=== PATIENT | male | born 1970 | race Asian ===

== ENCOUNTER 2019-10-18 14:12 | Emergency (ER) | payer OTHER ==
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
[2019-10-18 15:46] VITALS: BP 127/64
== END 2019-10-18 15:45 | disposition home or self-care (01) ==
LOC: ED 14:12
DX: S93.601A Unspecified sprain of right foot, initial encounter (principal); S90.511A Abrasion, right ankle, initial encounter; S80.211A Abrasion, right knee, initial encounter; S40.811A Abrasion of right upper arm, initial encounter; W05.2XXA Fall from non-moving motorized mobility scooter, initial encounter; Y93.89 Activity, other specified; Y92.480 Sidewalk as the place of occurrence of the external cause
CPT/HCPCS: 99282